=== PATIENT | male | born 1995 | race Two or more races ===

== ENCOUNTER 2021-07-20 00:41 | Emergency (ER) | payer OTHER ==
[~2021-07-20] VITALS: Ht 152.4 cm; Wt 56.7 kg
[2021-07-20] MEDS ORDERED: CEPHALEXIN500 MG PO (03:04)
== END 2021-07-20 03:09 ==
LOC: ER 00:41
DX: S01.02XA Laceration with foreign body of scalp, initial encounter (principal); W19.XXXA Unspecified fall, initial encounter; Y93.89 Activity, other specified; Y92.89 Other specified places as the place of occurrence of the external cause; Y99.8 Other external cause status

== ENCOUNTER 2021-08-01 14:04 | Emergency (ER) | payer OTHER ==
[~2021-08-01] VITALS: Ht 170.2 cm; Wt 56.7 kg
[~2021-08-01 14:04] MED LIST: CEPHALEXIN500 MG PO
== END 2021-08-01 16:23 | disposition home or self-care (01) ==
LOC: ER 14:04
DX: Z48.02 Encounter for removal of sutures (principal)